=== PATIENT | female | born 1985 | race Caucasian/White ===

== ENCOUNTER 2017-11-05 07:45 | Day surgery (SDC) | payer MEDICAID ==
[2017-11-03 11:11] LABS: HCG,QUAL RESULT NEGATIVE (NEGATIVE)
[~2017-11-05] VITALS: Ht 167.6 cm; Wt 92.5 kg
[2017-11-05] MEDS ORDERED: LR 1,000 ML IV.SOLN IV ONE (08:45)
[2017-11-05] MEDS ORDERED: NEOSTIGMINE METHYLSULFATE 1 MG/ML, 10 ML VIAL IVP ONE (08:45)
[2017-11-05] MEDS ORDERED: MIDAZOLAM HCL 5 MG/5 ML VIAL IVP ONE (08:45)
[2017-11-05] MEDS ORDERED: BUPIVACAINE /PF 0.5% 30 ML VIAL INJ ONE (08:45)
[2017-11-05] MEDS ORDERED: PROPOFOL 200MG/ 20ML VIAL (DIPRIVAN) IV ONE (08:45)
[2017-11-05] MEDS ORDERED: fentaNYL CITRATE 250 MCG/5 ML AMP IV ONE (08:45)
[2017-11-05] MEDS ORDERED: DEXAMETHASONE SOD PHOSPHATE 4 MG/ML VIAL IVP ONE (08:45)
[2017-11-05] MEDS ORDERED: NS IRRIG SOLN 1000 ML IR ONE (08:45)
[2017-11-05] MEDS ORDERED: ONDANSETRON HCL 4 MG/2 ML VIAL IVP ONE (08:45)
[2017-11-05] MEDS ORDERED: ROCURONIUM BROMIDE 10 MG/ML (ZEMURON) IV ONE (08:45)
[2017-11-05] MEDS ORDERED: GLYCOPYRROLATE 0.2 MG/ML VIAL IJ ONE (08:45)
[2017-11-05] MEDS ORDERED: BACITRACIN ZINC 15 GM TOPICAL OINTMENT TP ONE (08:45)
[2017-11-05] MEDS ORDERED: SEVOFLURANE 15 MIN GAS INH ONE (08:45)
[2017-11-05] MEDS ORDERED: LR 1,000 ML IV SCH (10:37)
[2017-11-05] MEDS ORDERED: METOCLOPRAMIDE HCL 10 MG/2 ML VIAL IVP PRN (10:45)
[2017-11-05] MEDS ORDERED: MORPHINE 4 MG/ML INJ. SYRINGE IVP PRN ×3 (10:45)
[2017-11-05] MEDS ORDERED: MORPHINE 4 MG/ML INJ. SYRINGE ONE (11:21)
[2017-11-05 12:07] VITALS: BP_SYST 138
[2017-11-05] MEDS ORDERED: HYDROcodone/ACETAMIN 5-325 MG TAB (NORCO/ VICODIN) PO ONE (13:15)
[2017-11-05] MEDS ORDERED: HYDROcodone/ACETAMIN 5-325 MG TAB (NORCO/ VICODIN) ONE (13:30)
== END 2017-11-05 14:20 | disposition home or self-care (01) ==
LOC: SDS 07:45 → SMU 07:51 → SDS 14:20
PROVIDERS: ATTEND Otolaryngology
DX: J35.01 Chronic tonsillitis (principal); E66.3 Overweight; E66.9 Obesity, unspecified; I10 Essential (primary) hypertension
CPT/HCPCS: 42826; 84703; 88304; 88305; J1100; J2250; J2270; J2405; J2704; J2710; J3010; J3490 ×2; J7120